=== PATIENT | female | born 1935 | race Caucasian/White ===

== ENCOUNTER 2017-01-28 11:25 | Emergency (ER) | payer OTHER, BC ==
[~2017-01-28] VITALS: Ht 154.9 cm; Wt 45.5 kg
[~2017-01-28 11:25] MED LIST: ASPIR 8181 M1 PO; COUMADIN,JANTOVE2 MG PO; DEXAMETHASONE0.5 MG PO; DIGOXIN125 MCG PO; DILTIAZEM ER120 M1 PO; GABAPENTIN300 MG PO; GLIMEPIRIDE2 MG PO; GLYBURIDE5 MG PO; JANUVIA25 M1 PO; Januvia PO; LASIX40 MG PO; LASIX80 MG PO; LOPRESSOR25 MG PO; Levaquin PO; Lopressor PO; METFORMIN HCL500 MG PO; METOPROLOL SUC100 MG PO; METOPROLOL SUCC25 MG PO; METOPROLOL TART50 MG PO; NEURONTIN300 MG PO; NITROGLYCERIN0.4 MG SL; NORCO 5/3251 TABLET PO; PERCOCET 5/31 TABLET PO; PRINIVIL10 MG PO; PROTONIX40 MG PO; VICODIN,LORT1 TABLET PO; WARFARIN SODIUM; WARFARIN SODIUM2 MG PO; ZESTRIL,PRINIVI10 MG PO; ZOFRAN4 MG PO
[2017-01-28 14:59] LABS: EOSINOPHIL (%) 0.2 % (0-5); HEMATOCRIT 23.6 % (36.0-46.0); IMMATURE GRANULOCYTE (%) 0.6 % (0.0-0.7); IMMATURE GRANULOCYTE COUNT 0.1 K/uL; INSTRUMENT ABS NEUTROPHIL CT 8.3 K/uL; LYMPHOCYTE COUNT 1.8 K/uL (1.0-2.8); MCH 22.2 PG (29.0-34.0); MCHC 30.5 G/DL (30.0-36.0); MCV 72.8 FL (83-99); MEAN PLAT.VOLUME 11.3 uM^3 (9.5-12.4); MONOCYTE (%) 9.3 % (3-12); NEUTROPHIL (%) 73.5 % (45-76); NEUTROPHIL COUNT 8.3 K/uL (1.8-6.4); PLATELET COUNT 215 K/uL (156-360); RBC DIS.WIDTH-CV 19.5 % (11.8-14.6); RBC DIS.WIDTH-SD 50.2 % (39-53); RED BLOOD COUNT 3.24 M/uL (3.80-5.20); WHITE BLOOD COUNT 11.2 K/uL (4.1-10.2)
[2017-01-28 15:34] LABS: CHLORIDE 108 mEq/L (99-109); POTASSIUM 4.3 mEq/L (3.7-5.4); SODIUM 139 mEq/L (136-147)
[2017-01-28 15:37] LABS: GLUCOSE 124 mg/dL (70-99)
[2017-01-28 15:38] LABS: ANION GAP 11 MEQ/L (2-14)
[2017-01-28 15:39] LABS: TOTAL BILIRUBIN 0.6 mg/dL (0.0-1.0)
[2017-01-28 15:40] LABS: ALKALINE PHOSPHATASE 67 IU/L (3-129); GFR ESTIMATE (CALCULATED) 24 mL/min/
[2017-01-28 15:41] LABS: UREA NITROGEN (BUN) 34 mg/dL (9-23)
[2017-01-28 15:44] LABS: TROP-I INTERPRETATION NEGATIVE; TROPONIN-I 0.04 ng/mL (0.0-0.30)
[2017-01-28 17:43] LABS: ADD MIUA? YES; BILIRUBIN NEGATIVE; BLOOD SMALL; COLOR YELLOW ((YELLOW)); GLUCOSE (STRIP) NEGATIVE; KETONES NEGATIVE; LEUKOCYTES SMALL; NITRITE NEGATIVE; PROTEIN (STRIP) 30; SPECIFIC GRAVITY 1.014 (1.000-1.030); UROBILINOGEN 0.2 MG/DL (0.2-1.0)
[2017-01-28 17:49] LABS: BACTERIA NONE SEEN /HPF; EPITHELIAL CELLS RARE /HPF; MUCUS TRACE /LPF; RED BLOOD CELLS 0-5 /HPF (0-5); UCUL ADDED? NO; WHITE BLOOD CELLS 0-5 /HPF (0-5)
[2017-01-28 18:20] VITALS: BP 143/100
== END 2017-01-28 18:21 | disposition home or self-care (01) ==
LOC: EME 11:25
PROVIDERS: Emergency Medicine
DX: I48.91 Unspecified atrial fibrillation (principal); D64.9 Anemia, unspecified; R10.9 Unspecified abdominal pain; W06.XXXA Fall from bed, initial encounter; Y92.003 Bedroom of unspecified non-institutional (private) residence as the place of occurrence of the external cause; Z91.81 History of falling; R29.6 Repeated falls; R63.4 Abnormal weight loss; Z68.1 Body mass index [BMI] 19.9 or less, adult; K57.30 Diverticulosis of large intestine without perforation or abscess without bleeding; I51.7 Cardiomegaly; I10 Essential (primary) hypertension; E11.9 Type 2 diabetes mellitus without complications; Z79.84 Long term (current) use of oral hypoglycemic drugs; Z90.49 Acquired absence of other specified parts of digestive tract; Z79.82 Long term (current) use of aspirin; Z90.710 Acquired absence of both cervix and uterus
CPT/HCPCS: 70450; 71020; 74176; 80053; 81003; 84484; 85025; 93005; 99281; 99285; J7040

== ENCOUNTER 2017-07-17 18:13 | Inpatient (IN) | payer OTHER, BC ==
[~2017-07-17] VITALS: Ht 154.9 cm; Wt 48.0 kg
[2017-07-17 18:54] LABS: BASOPHIL (%) 0.2 % (0-1); EOSINOPHIL (%) 0.2 % (0-5); HEMATOCRIT 27.9 % (36.0-46.0); HEMOGLOBIN 8.6 G/DL (11.9-15.5); IMMATURE GRANULOCYTE (%) 0.7 % (0.0-0.7); LYMPHOCYTE (%) 11.9 % (15-42); LYMPHOCYTE COUNT 1.2 K/uL (1.0-2.8); MCH 27.7 PG (29.0-34.0); MCHC 30.8 G/DL (30.0-36.0); MONOCYTE (%) 8.4 % (3-12); MONOCYTE COUNT 0.9 K/uL (0-0.8); NEUTROPHIL (%) 78.6 % (45-76); PLATELET COUNT 136 K/uL (156-360); RBC DIS.WIDTH-CV 15.9 % (11.8-14.6); RBC DIS.WIDTH-SD 51.7 % (39-53); WHITE BLOOD COUNT 10.2 K/uL (4.1-10.2)
[2017-07-17 19:04] LABS: ALBUMIN 3.7 g/dL (3.2-4.8); CHLORIDE 109 mEq/L (99-109); POTASSIUM 4.8 mEq/L (3.7-5.4); SODIUM 141 mEq/L (136-147)
[2017-07-17 19:06] LABS: GLUCOSE 159 mg/dL (70-99); TOTAL PROTEIN 9.2 g/dL (6.4-8.3)
[2017-07-17 19:08] LABS: TOTAL BILIRUBIN 0.7 mg/dL (0.0-1.0)
[2017-07-17 19:10] LABS: ALKALINE PHOSPHATASE 69 IU/L (3-129); CREATININE 2.2 mg/dL (0.6-1.3); GFR ESTIMATE (CALCULATED) 23 mL/min/
[2017-07-17 19:11] LABS: UREA NITROGEN (BUN) 47 mg/dL (9-23)
[2017-07-17 19:12] LABS: AST (GOT) 17 IU/L (2-34)
[2017-07-17 19:13] LABS: ALT (GPT) 9 IU/L (3-49)
[2017-07-17 19:14] LABS: TROP-I INTERPRETATION NEGATIVE; TROPONIN-I 0.05 ng/mL (0.0-0.30)
[2017-07-17 20:03] LABS: BILIRUBIN NEGATIVE; BLOOD MODERATE; COLOR YELLOW ((YELLOW)); GLUCOSE (STRIP) NEGATIVE; KETONES NEGATIVE; LEUKOCYTES LARGE; NITRITE POSITIVE; PROTEIN (STRIP) 100; SPECIFIC GRAVITY 1.013 (1.000-1.030); UROBILINOGEN 0.2 MG/DL (0.2-1.0)
[2017-07-17 20:04] LABS: APPEARANCE TURBID ((CLEAR))
[2017-07-17 20:18] LABS: BACTERIA 2+ /HPF; EPITHELIAL CELLS RARE /HPF; MUCUS NONE SEEN /LPF; UCUL ADDED? YES; WHITE BLOOD CELLS 20-30 /HPF (0-5)
[2017-07-17 20:19] LABS: AMORPHOUS URATES CRYSTALS 1+
[2017-07-17] MEDS ORDERED: NEURONTIN300 MG PO (22:30)
[2017-07-18] VITALS (7 sets, daily range): BP systolic 112–157; BP diastolic 58–72
[2017-07-18 08:54] LABS: THYROTROPIN (TSH) 2.5 MIU/L (0.4-5.5)
[2017-07-19 04:08] VITALS: BP 165/75
[2017-07-19 07:49] VITALS: BP 157/106
[2017-07-19 11:10] LABS: C DIFF TOXIN NEGATIVE (NEGATIVE)
[2017-07-19 12:00] VITALS: BP 152/72
[2017-07-19 15:28] VITALS: BP 129/60
[2017-07-19 19:24] VITALS: BP 125/62
[2017-07-19 23:24] VITALS: BP 121/58
[2017-07-20 08:00] VITALS: BP 157/74
[2017-07-20] MEDS ORDERED: FERROUS SULFAT325 MG PO (08:22)
[2017-07-20] MEDS ORDERED: KEFLEX500 MG PO (08:23)
[2017-07-20 12:00] VITALS: BP 143/80
== END 2017-07-20 13:43 | DRG 690 ==
LOC: EME 18:13 → EDOF 22:23 → 2EASTP 22:23 → ENRESERV 22:25 → 2EASTP 07-18 00:15
PROVIDERS: Emergency Medicine; Hospitalist; Physician Assistant Medical
DX: N39.0 Urinary tract infection, site not specified (principal); B96.20 Unspecified Escherichia coli [E. coli] as the cause of diseases classified elsewhere; I13.0 Hypertensive heart and chronic kidney disease with heart failure and stage 1 through stage 4 chronic kidney disease, or unspecified chronic kidney disease; I50.32 Chronic diastolic (congestive) heart failure; E11.22 Type 2 diabetes mellitus with diabetic chronic kidney disease; N18.9 Chronic kidney disease, unspecified; K59.00 Constipation, unspecified; I49.5 Sick sinus syndrome; I48.2 Chronic atrial fibrillation; I48.1 Persistent atrial fibrillation; D63.8 Anemia in other chronic diseases classified elsewhere; E27.40 Unspecified adrenocortical insufficiency; Z68.1 Body mass index [BMI] 19.9 or less, adult; E86.0 Dehydration; I27.20 Pulmonary hypertension, unspecified; I08.3 Combined rheumatic disorders of mitral, aortic and tricuspid valves; K29.60 Other gastritis without bleeding; I25.10 Atherosclerotic heart disease of native coronary artery without angina pectoris; G89.29 Other chronic pain; M48.061 Spinal stenosis, lumbar region without neurogenic claudication; M1A.9XX1 Chronic gout, unspecified, with tophus (tophi); M25.559 Pain in unspecified hip; M81.0 Age-related osteoporosis without current pathological fracture; R26.9 Unspecified abnormalities of gait and mobility; K21.9 Gastro-esophageal reflux disease without esophagitis; K44.9 Diaphragmatic hernia without obstruction or gangrene; E78.5 Hyperlipidemia, unspecified; J45.909 Unspecified asthma, uncomplicated; M19.90 Unspecified osteoarthritis, unspecified site; F41.9 Anxiety disorder, unspecified; F32.9 Major depressive disorder, single episode, unspecified; Z66 Do not resuscitate; Z80.51 Family history of malignant neoplasm of kidney; Z80.7 Family history of other malignant neoplasms of lymphoid, hematopoietic and related tissues; Z82.49 Family history of ischemic heart disease and other diseases of the circulatory system; Z82.5 Family history of asthma and other chronic lower respiratory diseases; Z95.5 Presence of coronary angioplasty implant and graft; Z96.643 Presence of artificial hip joint, bilateral; Z98.41 Cataract extraction status, right eye; Z98.42 Cataract extraction status, left eye
CPT/HCPCS: 71046; 74176; 80053; 81003; 82272; 82533 91; 82948; 84443; 84484; 85025; 86850; 86900; 86901; 87040; 87077; 87086; 87186; 87493; 93005; 93306; 97530 GP; 99281; 99285; J0696; J1644; J7030; J7040

== ENCOUNTER 2017-07-30 07:51 | Inpatient (IN) | payer OTHER, BC ==
[~2017-07-30] VITALS: Ht 154.9 cm; Wt 59.4 kg
[~2017-07-30 07:51] MED LIST changes: +FERROUS SULFAT325 MG PO; +KEFLEX500 MG PO
[2017-07-30 08:22] LABS: BASOPHIL (%) 0.1 % (0-1); EOSINOPHIL (%) 0 % (0-5); HEMATOCRIT 26.5 % (36.0-46.0); HEMOGLOBIN 8.1 G/DL (11.9-15.5); IMMATURE GRANULOCYTE (%) 0.8 % (0.0-0.7); LYMPHOCYTE (%) 11.3 % (15-42); LYMPHOCYTE COUNT 1.1 K/uL (1.0-2.8); MCH 27.6 PG (29.0-34.0); MCHC 30.6 G/DL (30.0-36.0); MCV 90.1 FL (83-99); MONOCYTE COUNT 0.8 K/uL (0-0.8); NEUTROPHIL (%) 78.8 % (45-76); NEUTROPHIL COUNT 7.4 K/uL (1.8-6.4); PLATELET COUNT 211 K/uL (156-360); RBC DIS.WIDTH-CV 17.4 % (11.8-14.6); RBC DIS.WIDTH-SD 55.8 % (39-53); RED BLOOD COUNT 2.94 M/uL (3.80-5.20); WHITE BLOOD COUNT 9.3 K/uL (4.1-10.2)
[2017-07-30 08:28] LABS: INTER. NORMALIZED RATIO 1.4
[2017-07-30 08:30] LABS: PTT 31.3 SEC (25-37)
[2017-07-30 08:46] LABS: TROP-I INTERPRETATION NEGATIVE; TROPONIN-I 0.05 ng/mL (0.0-0.30)
[2017-07-30 08:50] LABS: CHLORIDE 108 MEQ/L (99-109); CREATININE 2.4 MG/DL (0.6-1.3); GFR ESTIMATE (CALCULATED) 20 mL/min/; GLUCOSE 132 mg/dL (70-99); MAGNESIUM 2.4 mg/dl (1.3-2.7); POTASSIUM 5.4 MEQ/L (3.7-5.4); SODIUM 134 MEQ/L (136-147); UREA NITROGEN (BUN) 35 mg/dL (9-23)
[2017-07-30] MEDS ORDERED: IRON325 M1 PO (10:54)
[2017-07-30] MEDS ORDERED: MELATONIN3 MG PO (10:55)
[2017-07-30] MEDS ORDERED: OMEPRAZOLE20 MG PO (10:56)
[2017-07-30] MEDS ORDERED: DULCOLAX10 MG PR (10:57)
[2017-07-30] MEDS ORDERED: PHILLIPS'400 MG/5 M PO (10:58)
[2017-07-30] MEDS ORDERED: DUONEB 2.5-0.5 M3 ML AEROSOL (10:58)
[2017-07-30] MEDS ORDERED: ZOFRAN4 MG PO (10:59)
[2017-07-30] MEDS ORDERED: MIRALAX119 GM PO (10:59)
[2017-07-30] MEDS ORDERED: LOTRIMIN AF24 GM TP (11:00)
[2017-07-30 13:26] LABS: TROP-I INTERPRETATION NEGATIVE; TROPONIN-I 0.05 ng/mL (0.0-0.30)
[2017-07-30 17:22] LABS: HEMATOCRIT 26.4 % (36.0-46.0)
[2017-07-30 17:43] LABS: TROP-I INTERPRETATION NEGATIVE; TROPONIN-I 0.05 ng/mL (0.0-0.30)
[2017-07-31 00:08] VITALS: BP 88/52
[2017-07-31 08:31] VITALS: BP 110/60
[2017-07-31] MEDS ORDERED: AMOX TR-K CLV1 EAC3 PO (15:18)
[2017-07-31] MEDS ORDERED: AZITHROMYCIN500 M1 PO (15:21)
== END 2017-07-31 15:30 | DRG 189 ==
LOC: EME 07:51 → EDOF 11:32 → 5EAST 11:32 → ENRESERV 11:33 → EDOF 17:54 → ENRESERV 17:54 → EDOF 17:54 → ENRESERV 22:11 → 5EAST 23:12
PROVIDERS: Emergency Medicine; Internal Medicine
DX: J96.01 Acute respiratory failure with hypoxia (principal); J18.9 Pneumonia, unspecified organism; I48.2 Chronic atrial fibrillation; I27.20 Pulmonary hypertension, unspecified; Z51.5 Encounter for palliative care; I13.0 Hypertensive heart and chronic kidney disease with heart failure and stage 1 through stage 4 chronic kidney disease, or unspecified chronic kidney disease; E11.22 Type 2 diabetes mellitus with diabetic chronic kidney disease; D64.9 Anemia, unspecified; Z66 Do not resuscitate; N18.3 Chronic kidney disease, stage 3 (moderate); R62.7 Adult failure to thrive; J98.11 Atelectasis; E78.5 Hyperlipidemia, unspecified; E27.40 Unspecified adrenocortical insufficiency; I50.9 Heart failure, unspecified; I25.10 Atherosclerotic heart disease of native coronary artery without angina pectoris; J45.909 Unspecified asthma, uncomplicated; Z96.649 Presence of unspecified artificial hip joint; Z95.5 Presence of coronary angioplasty implant and graft; M81.0 Age-related osteoporosis without current pathological fracture; I95.9 Hypotension, unspecified; F41.9 Anxiety disorder, unspecified; F32.9 Major depressive disorder, single episode, unspecified
CPT/HCPCS: 71045; 71250; 80048; 80048 91; 83735; 83880; 84443; 84484; 85014; 85018; 85025; 85025 91; 85610; 85730; 86850; 86900; 86901; 87040; 87070; 87205; 87449; 87502; 89051; 93005; 94640 76; 94799; 99202; 99281; 99285; J0456; J0461; J0692; J2270; J3370; J7030; J7050